=== PATIENT | female | born 2005 | race Caucasian/White ===

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

== ENCOUNTER 2024-02-26 01:45 | Emergency (ER) | payer OTHER ==
[~2024-02-26] VITALS: Ht 149.8 cm; Wt 49.9 kg
[~2024-02-26 01:45] MED LIST changes: +ZITHROMAX100 MG/51 PO
[2024-02-26] MEDS ORDERED: Ketorolac Tromethamine 30 MG/ML VIAL IM ONE (01:55)
== END 2024-02-26 02:12 | disposition home or self-care (01) ==
LOC: ED 01:45
DX: K02.9 Dental caries, unspecified (principal); Z88.0 Allergy status to penicillin

== ENCOUNTER 2024-04-20 10:49 | Emergency (ER) | payer OTHER ==
[~2024-04-20] VITALS: Ht 149.8 cm; Wt 54.4 kg
[2024-04-20] MEDS ORDERED: NAPROSYN500 MG PO (12:53)
[2024-04-20] MEDS ORDERED: methylPREDNISolone sod succ 125 MG VIAL IM ONE (12:55)
== END 2024-04-20 12:57 | disposition home or self-care (01) ==
LOC: ED 10:49
DX: M94.0 Chondrocostal junction syndrome [Tietze] (principal); Z20.822 Contact with and (suspected) exposure to COVID-19; Z88.0 Allergy status to penicillin

== ENCOUNTER 2024-06-20 09:57 | Emergency (ER) | payer OTHER ==
[~2024-06-20] VITALS: Ht 149.8 cm; Wt 54.4 kg
[~2024-06-20 09:57] MED LIST changes: +NAPROSYN500 MG PO
[2024-06-20] MEDS ORDERED: CLEOCIN75 MG/5 ML PO (10:09)
== END 2024-06-20 10:10 | disposition home or self-care (01) ==
LOC: ED 09:57
DX: K02.9 Dental caries, unspecified (principal); K04.7 Periapical abscess without sinus; Z88.0 Allergy status to penicillin

== ENCOUNTER 2024-08-01 15:27 | Emergency (ER) | payer OTHER ==
[~2024-08-01] VITALS: Ht 149.8 cm; Wt 49.0 kg
[2024-08-01 16:48] LABS: BILIRUBIN Negative (Negative); BLOOD 1+ (Negative); CLARITY Cloudy (Clear); COLOR Yellow (Yellow); GLUCOSE Negative (Negative); KETONE Trace (Negative); LEUKO ESTERASE 2+ (Negative); NITRITE Negative (Negative); SPECIFIC GRAVITY 1.025 (1.001-1.030)
[2024-08-01 16:56] LABS: BACTERIA 2+; MUCOUS 2+; WBC 31-40 wbc/hpf (0-5)
[2024-08-01] MEDS ORDERED: MACROBID100 M1 PO (16:59)
[2024-08-01] MEDS ORDERED: NITROFURAN50 MG/5 ML PO (17:03)
[2024-08-01] MEDS ORDERED: CLEOCIN75 MG/5 ML PO (17:17)
== END 2024-08-01 17:21 | disposition home or self-care (01) ==
LOC: ED 15:27
PROVIDERS: Physician Assistant Medical
DX: N39.0 Urinary tract infection, site not specified (principal); R10.2 Pelvic and perineal pain; Z88.0 Allergy status to penicillin

== ENCOUNTER 2024-08-29 18:38 | Emergency (ER) | payer OTHER ==
[~2024-08-29] VITALS: Ht 149.8 cm; Wt 47.6 kg
[~2024-08-29 18:38] MED LIST changes: +MACROBID100 M1 PO; +NITROFURAN50 MG/5 ML PO
[2024-08-29] MEDS ORDERED: Ketorolac Tromethamine 60 MG/2 ML VIAL IM ONE (19:00)
== END 2024-08-29 21:06 | disposition home or self-care (01) ==
LOC: ED 18:38
DX: S93.601A Unspecified sprain of right foot, initial encounter (principal); Z88.0 Allergy status to penicillin; X50.1XXA Overexertion from prolonged static or awkward postures, initial encounter; Y93.01 Activity, walking, marching and hiking; Y92.89 Other specified places as the place of occurrence of the external cause; Y99.8 Other external cause status

== ENCOUNTER 2024-10-16 09:26 | Emergency (ER) | payer OTHER ==
[~2024-10-16] VITALS: Ht 149.8 cm; Wt 47.6 kg
[2024-10-16 10:01] LABS: BILIRUBIN Negative (Negative); BLOOD Trace-Intact (Negative); CLARITY Turbid (Clear); COLOR Yellow (Yellow); KETONE Negative (Negative); LEUKO ESTERASE 2+ (Negative); NITRITE Negative (Negative); PH 7.0 (4.5-8.0); SPECIFIC GRAVITY 1.020 (1.001-1.030); UROBILINOGEN 1.0 E.U./dl (0.0-1.0)
[2024-10-16] MEDS ORDERED: Water, Sterile 10 ML VIAL ONE (10:18)
[2024-10-16 10:21] LABS: BACTERIA 2+; YEAST 2+
[2024-10-16 10:22] LABS: RBC 0-2 rbc/hpf (0-2); WBC 31-40 wbc/hpf (0-5)
[2024-10-16] MEDS ORDERED: VIBRAMYCIN100 MG PO (10:30)
== END 2024-10-16 10:33 | disposition home or self-care (01) ==
LOC: ED 09:26
PROVIDERS: Emergency Medicine
DX: N39.0 Urinary tract infection, site not specified (principal); Z88.0 Allergy status to penicillin

== ENCOUNTER 2025-02-18 09:47 | Emergency (ER) | payer SELFPAY ==
[~2025-02-18] VITALS: Ht 149.8 cm; Wt 49.9 kg
[2025-02-18] MEDS ORDERED: CLINDAMYCIN HC300 MG PO (10:21)
== END 2025-02-18 11:01 | disposition home or self-care (01) ==
LOC: ED 09:47
DX: K02.9 Dental caries, unspecified (principal); Z88.0 Allergy status to penicillin